=== PATIENT | female | born 1955 | race Caucasian/White ===

== ENCOUNTER 2016-10-16 05:07 | Inpatient (IN) ==
[2016-10-13 17:30] LABS: Basophils # (Auto) 0 K/mcL (0.0-0.3); Basophils % (Auto) 0.5 % (0.0-2.0); Eosinophils # (Auto) 0.3 K/mcL (0.0-0.7); Eosinophils % (Auto) 3.7 % (0.0-7.0); Granulocytes % (Auto) 58.8 % (38.0-78.0); Lymphocytes # (Auto) 2.7 K/mcL (1.5-4.8); Lymphocytes % (Auto) 31.6 % (15.5-49.0); Mean Cell Volume 91.2 fL (80.0-100.0); Mean Corpuscular HGB Conc 34.3 g/dL (31.0-36.0); Mean Corpuscular Hemoglobin 31.3 pg (26.0-34.0); Monocytes # (Auto) 0.5 K/mcL (0.1-0.9); Monocytes % (Auto) 5.4 % (1.0-12.0); Platelet Count 348 K/mcL (140-440); RBC 4.28 M/mcL (4.00-5.20); Red Cell Distribution Width 13.7 % (11.5-14.5)
[2016-10-13 17:42] LABS: Blood Urea Nitrogen 15 mg/dl (8-23)
[2016-10-14 15:57] LABS: Appearance,Urine HAZY; Bacteria,Urine 0 /hpf (0); Bilirubin,Urine NEG (NEG); Color,Urine AMBER; Glucose,Urine (UA) NEGATIVE (NEG); Leukocyte Esterase,Urine NEG /uL (NEG); Mucus,Urine FEW /hpf (0); Nitrate,Urine NEG (NEG); Protein,Urine 30 mg/dL (NEG); Specific Gravity,Urine 1.023 (1.000-1.035); Urine Blood NEG mg/dL (<0.03); Urine Hyaline Cast 11 /lpf (0-2); Urine RBC 1 /hpf (0-1); Urine Squamous Epithelial Cell 7 /hpf (0-4); Urine WBC 2 /hpf (0-4); Urobilinogen,Urine NEG (NEG)
[2016-10-16] MEDS ORDERED: ceFAZolin 1 GM VIAL IV SCH (06:00)
[2016-10-16 06:16] LABS: Appearance,Urine HAZY; Bacteria,Urine FEW /hpf (0); Bilirubin,Urine NEG (NEG); Color,Urine YELLOW; Glucose,Urine (UA) NEGATIVE (NEG); Leukocyte Esterase,Urine NEG /uL (NEG); Mucus,Urine MANY /hpf (0); Nitrate,Urine NEG (NEG); Protein,Urine 30 mg/dL (NEG); Specific Gravity,Urine 1.027 (1.000-1.035); Urine Blood NEG mg/dL (<0.03); Urine Hyaline Cast 4 /lpf (0-2); Urine RBC < 1 /hpf (0-1); Urine Squamous Epithelial Cell 4 /hpf (0-4); Urine Transitional Epi Cells < 1 /hpf (0-2); Urine WBC 2 /hpf (0-4); Urobilinogen,Urine NEG (NEG)
[2016-10-16] MEDS ORDERED: ONDANSETRON 4 MG/2 ML VIAL IV ONE (07:35)
[2016-10-16] MEDS ORDERED: TRANEXAMIC ACID 1,000 MG/10 ML VIAL IV ONE (07:35)
[2016-10-16] MEDS ORDERED: LIDOCAINE HCL/PF 100 MG/5 ML SYRINGE IV ONE (07:35)
[2016-10-16] MEDS ORDERED: PROPOFOL 200 MG/20 ML VIAL IV ONE (07:35)
[2016-10-16] MEDS ORDERED: DEXAMETHASONE 10 MG/ML VIAL IV ONE (07:35)
[2016-10-16] MEDS ORDERED: MIDAZOLAM 5 MG/5 ML VIAL IV ONE (07:35)
[2016-10-16] MEDS ORDERED: ROPIVACAINE HCL/PF 20 ML VIAL IJ ONE (07:35)
[2016-10-16] MEDS ORDERED: KETOROLAC 30 MG, ROPIVACAINE HCL/PF 49.5 ML, EPINEPHrine 0.5 MG, 0.9 % SODIUM CHLORIDE ... IJ ONE (08:00)
[2016-10-16] MEDS ORDERED: GENTAMICIN SULFATE 800 MG/20 ML VIAL IR ONE (08:02)
[2016-10-16] MEDS ORDERED: METHOCARBAMOL 1,000 MG/10 ML VIAL IV PRN (09:26)
[2016-10-16] MEDS ORDERED: HYDROmorphone 2 MG/ML SYRINGE IV PRN (09:26)
[2016-10-16] MEDS ORDERED: FLUMAZENIL 0.1 MG/ML ML IV PRN (09:26)
[2016-10-16] MEDS ORDERED: NALOXONE HCL 0.4 MG/ML VIAL IV PRN (09:26)
[2016-10-16] MEDS ORDERED: IPRATROPIUM/ALBUTEROL 3 ML AMPUL.NEB NEB PRN (09:26)
[2016-10-16] MEDS ORDERED: ONDANSETRON 4 MG/2 ML VIAL IV PRN ×2 (09:26→09:32)
[2016-10-16] MEDS ORDERED: diphenhydrAMINE 50 MG/ML VIAL IV PRN (09:26)
[2016-10-16] MEDS ORDERED: LACTATED RINGERS 250 ML IV PRN (09:26)
[2016-10-16] MEDS ORDERED: fentaNYL 100 MCG/2 ML VIAL IV PRN (09:26)
[2016-10-16] MEDS ORDERED: BENZOCAINE/MENTHOL 1 LOZENGE PO PRN ×2 (09:26→09:32)
[2016-10-16] MEDS ORDERED: LACTATED RINGERS 1,000 ML IV SCH (09:30)
[2016-10-16] MEDS ORDERED: BISACODYL 10 MG SUPP.RECT PR PRN (09:32)
[2016-10-16] MEDS ORDERED: MAGNESIUM HYDROXIDE 30 ML ORAL.SUSP PO PRN (09:32)
[2016-10-16] MEDS ORDERED: POLYETHYLENE GLYCOL 3350 17 GM PACKET PO PRN (09:32)
[2016-10-16] MEDS ORDERED: METHOCARBAMOL 750 MG TABLET PO PRN (09:32)
[2016-10-16] MEDS ORDERED: TRANEXAMIC ACID 1,000 MG/10 ML VIAL IV SCH (09:32)
[2016-10-16] MEDS ORDERED: FLEETS ADULT ENEMA PR PRN (09:32)
--- NOTE | 2016-10-16 09:49 | Brief Operative Note ---
Date of procedure: 10/16/16 Pre-op diagnosis: r knee primary arthritis Post-op diagnosis: same Procedure: r tkr (SNN BCS) Grafts/Implants: No Anesthesia: GETA Complications: none Surgeon: Hugo Rubio Explosive Ordnance Technician: Stefan Greenfield Estimated blood loss (cc): 250 Tourniquet Time (Minutes): 80 Specimens Removed/Pathology: none sent Condition: stable Disposition: PACU
[2016-10-16] MEDS: MEPERIDINE 25 MG/ML SYRINGE IV PRN ×2 (10:20→10:31)
--- NOTE | 2016-10-16 10:22 | XRay Report ---
CLINICAL INFORMATION: Total knee prostheses COMPARISON: None. FINDINGS: Total knee prostheses is anatomically aligned. No osseous abnormality. Periarticular gas and soft tissue swelling seen - as expected IMPRESSION: Negative Interpreted and Authenticated by: Kojo Kerr 10/16/16
[2016-10-16] MEDS: KETOROLAC 15 MG/ML VIAL IV SCH ×2 (12:27→17:38)
[2016-10-16] MEDS: HYDROcodone/APAP 10/325MG TABLET PO PRN ×3 (14:27→21:05)
[2016-10-16] MEDS: 0.9 % SODIUM CHLORIDE 10 ML SYRINGE IV SCH ×2 (14:27→21:06)
[2016-10-16] MEDS: GABAPENTIN 300 MG CAPSULE PO SCH ×2 (15:09→21:05)
[2016-10-16] MEDS: ceFAZolin 1 GM VIAL IV SCH ×2 (15:14→23:23)
[2016-10-16] MEDS: 0.9 % SODIUM CHLORIDE 1,000 ML IV SCH ×2 (16:36→21:06)
[2016-10-16] MEDS ORDERED: TEMAZEPAM 15 MG CAPSULE PO PRN (21:00)
[2016-10-16] MEDS: DOCUSATE SODIUM 100 MG CAPSULE PO SCH (21:05)
[2016-10-16] MEDS: SENNOSIDES 1 TABLET PO SCH (21:05)
[2016-10-16] MEDS: ATENOLOL 50 MG TABLET PO SCH (21:05)
[2016-10-16] MEDS: ENOXAPARIN 30 MG/0.3 ML SYRINGE SQ SCH (21:05)
[2016-10-17] MEDS: HYDROcodone/APAP 10/325MG TABLET PO PRN ×4 (00:30→12:37)
[2016-10-17] MEDS: KETOROLAC 15 MG/ML VIAL IV SCH ×5 (00:31→23:30)
[2016-10-17] MEDS: 0.9 % SODIUM CHLORIDE 1,000 ML IV SCH (05:25)
[2016-10-17] MEDS: 0.9 % SODIUM CHLORIDE 10 ML SYRINGE IV SCH ×3 (06:07→20:55)
--- NOTE | 2016-10-17 07:28 | Orthopedic Progress Note ---
Subjective Patient information: Note initiated : 10/17/16 at 7:26 am Service Date, if different from initiated Date: [] Patient: Summer Gaines 61 y/o F admitted on 10/16/16 for Right Total Knee Arthroplasty. Chief Complaint: [] Principal diagnosis: knee arthritis Interval history: POD 1 Objective Vital signs: Vital Signs Temp Pulse Resp BP BP BP Pulse Ox 10/17/16 06:49 97.7 F 65 12 102/67 95 10/17/16 06:39 97 10/17/16 04:00 97.8 F 68 14 91/57 97 10/17/16 00:00 96.8 F L 70 14 119/69 93 10/16/16 20:00 97.9 F 75 18 133/74 97 10/16/16 16:18 98.4 F 14 125/72 96 10/16/16 14:02 97 10/16/16 13:30 68 123/70 96 10/16/16 12:30 68 114/70 97 10/16/16 12:00 66 119/73 10/16/16 11:30 104 H 118/76 86 L 10/16/16 11:15 63 127/77 97 10/16/16 11:00 65 120/86 96 10/16/16 10:46 98.4 F 66 10 L 112/67 99 10/16/16 10:34 99.2 F H 65 13 105/69 100 10/16/16 10:21 67 22 140/80 99 10/16/16 10:06 70 22 147/81 100 10/16/16 10:01 70 22 111/83 100 10/16/16 09:56 70 15 126/57 95 10/16/16 09:51 98.1 F 73 13 133/45 100 Intake and Output 10/16/16 10/17/16 10/17/16 21:59 05:59 13:59 Intake Total 920 / 920 400 / 400 Output Total 225 / 225 1250 / 1250 Balance 695 / 695 -850 / -850 Intake: Oral 920 / 920 400 / 400 Output: Urine Catheter Amount 225 / 225 1250 / 1250 Other: Meal Dinner Percent of Meal Consumed 80 Weight 226 lb Intake & Output: Intake & Output 10/16/16 10/17/16 10/17/16 21:59 05:59 13:59 Intake Total 920 / 920 400 / 400 Output Total 225 / 225 1250 / 1250 Balance 695 / 695 -850 / -850 Weight 226 lb Intake: Oral 920 / 920 400 / 400 Output: Urine Catheter Amount 225 / 225 1250 / 1250 Other: Meal Dinner Percent of Meal Consumed 80 Dressing: Yes clean, Yes dry Weight bearing status: full Extremities exam IM: Yes neurovascular intact - Labs CBC & BMP: 10/17/16 05:33 10/16/16 05:11 Labs: Orthopedic Labs 10/13/16 15:26 PT 13.4 INR 1.0 10/17/16 10/17/16 10/13/16 06:50 05:33 15:26 Hgb Pending TNP 13.4 Hct Pending Not Reportable 39.0 Assessment and Plan (1) Knee joint replacement status continue Physical therapy, pain mgmt., Lovenox Status: Acute
[2016-10-17] MEDS: POTASSIUM CHLORIDE 20 MEQ TABLET PO SCH (08:05)
[2016-10-17] MEDS: GABAPENTIN 300 MG CAPSULE PO SCH ×3 (08:05→20:51)
[2016-10-17] MEDS: DOCUSATE SODIUM 100 MG CAPSULE PO SCH ×2 (08:05→20:51)
[2016-10-17] MEDS: ENOXAPARIN 30 MG/0.3 ML SYRINGE SQ SCH ×2 (08:05→20:51)
[2016-10-17] MEDS: LOSARTAN 50 MG TABLET PO SCH (08:06)
[2016-10-17] MEDS: ATENOLOL 50 MG TABLET PO SCH ×2 (08:06→20:52)
[2016-10-17] MEDS: HYDROCHLOROTHIAZIDE 25 MG TABLET PO SCH (08:06)
--- NOTE | 2016-10-17 12:03 | Operative Note ---
DATE OF OPERATION: 10/16/2016 PREOPERATIVE DIAGNOSIS: Primary osteoarthritis of the right knee. POSTOPERATIVE DIAGNOSES: Primary osteoarthritis of the right knee. OPERATION: Right total knee replacement. SURGEON: Hugo Rubio MD. CHILD WATCH ATTENDANT: Stefan Greenfield PA-C. ANESTHESIA: General. SUMMARY OF PROCEDURE: General anesthesia was attained. The tourniquet was put up. A midline incision was made from the quadriceps to the tibial tubercle. It was taken down to the quadriceps and medial retinacular layer. These were split longitudinally. The patellar tendon was mobilized laterally. The fat pad was debrided. The anterior half of the menisci were resected. The ACL was released. The knee was flexed. The intramedullary canal was opened using a drill and then a reamer on the femur. There was no flexion contracture. The distal cut was made. This was a 9.5 mm resection. The femur was sized and the rotation was adjusted to match the patient's. The knee was next flexed. The proximal tibial guide was placed into the intramedullary canal. The proximal cut was made. I then did a tension check using the tensioner, and there was excellent balance in flexion and extension and agreement of the flexion and extension gap based on the measurements. The anterior, posterior and bevel cuts were made in the femur. The box cut was made as well. The intramedullary canal of the tibia was prepared for placement of the implant by drilling and then broaching. The trial components were placed. The tibia was a #1. The best insert for stability and a full range of motion was with a 15 mm bicruciate substituting insert. The patella was everted. The patellar depth was measured to 24 by calibrated measurement, resected down to 14 mm. Patella was sized to a 29. The no-touch test showed a release was not needed. The joint surfaces were thoroughly irrigated. The components were cemented in. Excess cement was removed. The cement was set with the knee in full extension. The tourniquet was let down. All bleeding points were coagulated. The quadriceps and medial retinaculum were closed with #2 buried FiberWire and then a running locking 0 Maxon. The subcutaneous tissue was closed with 2-0 Vicryl. The skin was closed with wild. During this surgery the back of the knee had been infiltrated with 50 mL of multimodal ___ for postoperative analgesia. A sterile compressive dressing was applied. The patient awoke without difficulty. She was taken to the recovery room in stable condition. The sponge and needle count was correct. DOLORES:shar Job ID: [id number] Doc ID: [id number] Hugo Rubio MD
[2016-10-17] MEDS ORDERED: diphenhydrAMINE 25 MG CAPSULE PO PRN (12:56)
[2016-10-17] MEDS: SENNOSIDES 1 TABLET PO SCH (20:51)
[2016-10-17] MEDS: oxyCODONE/APAP 10/325MG TABLET PO PRN (20:54)
[2016-10-18] MEDS: oxyCODONE/APAP 10/325MG TABLET PO PRN ×3 (04:22→12:31)
[2016-10-18] MEDS: 0.9 % SODIUM CHLORIDE 10 ML SYRINGE IV SCH (04:23)
[2016-10-18] MEDS: KETOROLAC 15 MG/ML VIAL IV SCH (05:33)
--- NOTE | 2016-10-18 07:50 | Orthopedic Progress Note ---
Subjective Patient information: Note initiated : 10/18/16 at 7:49 am Service Date, if different from initiated Date: [] Patient: Summer Olvera a 61 y/o F admitted on 10/16/16 for Right Total Knee Arthroplasty. Chief Complaint: [] Principal diagnosis: knee arthritis Interval history: no complaints Objective Vital signs: Vital Signs Temp Pulse Resp BP BP Pulse Ox 10/18/16 07:10 98.6 F 16 123/70 97 10/18/16 03:31 98.1 F 58 L 18 108/65 94 10/17/16 23:33 97.8 F 61 14 116/72 95 10/17/16 19:56 98.0 F 60 14 101/56 95 10/17/16 16:00 97.7 F 16 106/69 92 10/17/16 12:00 97.6 F 20 117/61 98 Intake and Output 10/17/16 10/18/16 10/18/16 21:59 05:59 13:59 Intake Total 700 / 700 240 / 240 Output Total 525 / 525 1000 / 1000 Balance 175 / 175 -760 / -760 Intake: Oral 700 / 700 240 / 240 Output: Void Amount 525 / 525 1000 / 1000 Other: Weight 225 lb 5 oz Intake & Output: Intake & Output 10/17/16 10/18/16 10/18/16 21:59 05:59 13:59 Intake Total 700 / 700 240 / 240 Output Total 525 / 525 1000 / 1000 Balance 175 / 175 -760 / -760 Weight 225 lb 5 oz Intake: Oral 700 / 700 240 / 240 Output: Void Amount 525 / 525 1000 / 1000 Dressing: Yes clean, Yes dry, Yes intact Neurological exam IM: Yes oriented X3 - Labs CBC & BMP: 10/17/16 06:50 10/16/16 05:11 Labs: Orthopedic Labs 10/13/16 15:26 PT 13.4 INR 1.0 10/18/16 10/17/16 10/17/16 05:00 06:50 05:33 Hgb Pending 10.4 L TNP Hct Pending 30.8 L Not Reportable 10/13/16 15:26 Hgb 13.4 Hct 39.0 Assessment and Plan (1) Knee joint replacement status Status: Acute Comment: plan discharge
[2016-10-18] MEDS: HYDROCHLOROTHIAZIDE 25 MG TABLET PO SCH (08:28)
[2016-10-18] MEDS: POTASSIUM CHLORIDE 20 MEQ TABLET PO SCH (08:28)
[2016-10-18] MEDS: GABAPENTIN 300 MG CAPSULE PO SCH (08:28)
[2016-10-18] MEDS: DOCUSATE SODIUM 100 MG CAPSULE PO SCH (08:28)
[2016-10-18] MEDS: LOSARTAN 50 MG TABLET PO SCH (08:28)
[2016-10-18] MEDS: ENOXAPARIN 30 MG/0.3 ML SYRINGE SQ SCH (08:29)
[2016-10-18] MEDS: ATENOLOL 50 MG TABLET PO SCH (08:29)
== END 2016-10-18 13:40 | disposition home or self-care (01) | DRG 470 ==
LOC: MEDSUR 05:07
PROVIDERS: ADMIT Orthopaedic Surgery Foot and Ankle Surgery; ATTEND Orthopaedic Surgery Foot and Ankle Surgery

== ENCOUNTER 2017-02-05 07:53 | Inpatient (IN) ==
[2017-01-28 15:42] LABS: Appearance,Urine CLEAR; Bilirubin,Urine NEG (NEG); Color,Urine YELLOW; Glucose,Urine (UA) NEGATIVE (NEG); Leukocyte Esterase,Urine NEG /uL (NEG); Nitrate,Urine NEG (NEG); Protein,Urine NEG (NEG); Urine Blood NEG mg/dL (<0.03); Urobilinogen,Urine NEG (NEG)
[2017-01-28 16:18] LABS: Basophils # (Auto) 0 K/mcL (0.0-0.3); Basophils % (Auto) 0.5 % (0.0-2.0); Eosinophils # (Auto) 0.2 K/mcL (0.0-0.7); Eosinophils % (Auto) 2.2 % (0.0-7.0); Granulocytes % (Auto) 70.6 % (38.0-78.0); Lymphocytes # (Auto) 2.3 K/mcL (1.5-4.8); Lymphocytes % (Auto) 23.5 % (15.5-49.0); Mean Cell Volume 90.2 fL (80.0-100.0); Mean Corpuscular HGB Conc 33.1 g/dL (31.0-36.0); Mean Corpuscular Hemoglobin 29.9 pg (26.0-34.0); Monocytes # (Auto) 0.3 K/mcL (0.1-0.9); Monocytes % (Auto) 3.2 % (1.0-12.0); Platelet Count 380 K/mcL (140-440); RBC 4.24 M/mcL (4.00-5.20); Red Cell Distribution Width 15.3 % (11.5-14.5)
[2017-01-28 16:20] LABS: Blood Urea Nitrogen 18 mg/dl (8-23)
[~2017-02-05 07:53] MED LIST: ceFAZolin 1 GM VIAL IV SCH
[2017-02-05] MEDS ORDERED: KETOROLAC 30 MG, ROPIVACAINE HCL/PF 49.5 ML, EPINEPHrine 0.5 MG, 0.9 % SODIUM CHLORIDE ... IJ ONE (09:53)
[2017-02-05] MEDS ORDERED: PROPOFOL 200 MG/20 ML VIAL IV ONE (10:40)
[2017-02-05] MEDS ORDERED: LIDOCAINE HCL/PF 100 MG/5 ML SYRINGE IV ONE (10:40)
[2017-02-05] MEDS ORDERED: HYDROmorphone 2 MG/ML SYRINGE IV ONE (10:40)
[2017-02-05] MEDS ORDERED: ONDANSETRON 4 MG/2 ML VIAL IV ONE (10:40)
[2017-02-05] MEDS ORDERED: BUPIVACAINE PF 0.5% 30 ML VIAL IJ ONE (10:40)
[2017-02-05] MEDS ORDERED: DEXAMETHASONE 10 MG/ML VIAL IV ONE (10:40)
[2017-02-05] MEDS ORDERED: MIDAZOLAM 5 MG/5 ML VIAL IV ONE (10:40)
[2017-02-05] MEDS ORDERED: ACETAMINOPHEN 1,000 MG/100 ML BOTTLE IV ONE (11:08)
[2017-02-05] MEDS ORDERED: ATROPINE SULFATE 0.4 MG/ML VIAL IV PRN (11:08)
[2017-02-05] MEDS ORDERED: NALOXONE HCL 0.4 MG/ML VIAL IV PRN (11:08)
[2017-02-05] MEDS ORDERED: FLUMAZENIL 0.1 MG/ML ML IV PRN (11:08)
[2017-02-05] MEDS ORDERED: IPRATROPIUM/ALBUTEROL 3 ML AMPUL.NEB NEB PRN (11:08)
[2017-02-05] MEDS ORDERED: BENZOCAINE/MENTHOL 1 LOZENGE PO PRN (11:08)
[2017-02-05] MEDS ORDERED: ePHEDrine 50 MG/ML AMPUL IV PRN (11:08)
[2017-02-05] MEDS ORDERED: ONDANSETRON 4 MG/2 ML VIAL IV PRN (11:08)
[2017-02-05] MEDS ORDERED: PROMETHAZINE 25 MG/ML VIAL IV PRN (11:08)
[2017-02-05] MEDS ORDERED: fentaNYL 100 MCG/2 ML VIAL IV PRN (11:08)
[2017-02-05] MEDS ORDERED: METOPROLOL TARTRATE 5 MG/5 ML VIAL IV PRN (11:08)
[2017-02-05] MEDS ORDERED: diphenhydrAMINE 50 MG/ML VIAL IV PRN (11:08)
[2017-02-05] MEDS ORDERED: LACTATED RINGERS 1,000 ML IV SCH (11:15)
--- NOTE | 2017-02-05 11:42 | Brief Operative Note ---
Date of procedure: 02/05/17 Pre-op diagnosis: instability right knee replacement Post-op diagnosis: same Procedure: Polyethylene liner exchange right kmee Grafts/Implants: Yes (snn constrained liner) Anesthesia: GETA Complications: none Surgeon: Hugo Rubio Echocardiography Radiology Technologist: Stefan Greenfield Estimated blood loss (cc): 50 Tourniquet Time (Minutes): 45 Specimens Removed/Pathology: none sent Condition: stable Disposition: PACU
[2017-02-05] MEDS ORDERED: GENTAMICIN SULFATE 800 MG/20 ML VIAL IR ONE (11:57)
[2017-02-05] MEDS: MEPERIDINE 25 MG/ML SYRINGE IV PRN ×2 (12:06→12:09)
--- NOTE | 2017-02-05 13:32 | XRay Report ---
CLINICAL INFORMATION: Total knee prostheses COMPARISON: None. FINDINGS: Total knee prosthesis is anatomically aligned. No osseous abnormalities. Periarticular soft tissue swelling seen as expected IMPRESSION: Negative Interpreted and Authenticated by: Kojo Kerr 02/05/17
[2017-02-05] MEDS ORDERED: HYDROcodone/APAP 10/325MG TABLET PO PRN (14:00)
[2017-02-05] MEDS ORDERED: ATENOLOL 50 MG TABLET PO SCH (21:00)
[2017-02-06] MEDS ORDERED: POTASSIUM CHLORIDE 20 MEQ TABLET PO SCH (08:00)
[2017-02-06] MEDS ORDERED: HYDROCHLOROTHIAZIDE 25 MG TABLET PO SCH (09:00)
[2017-02-06] MEDS ORDERED: LOSARTAN 25 MG TABLET PO SCH (09:00)
--- NOTE | 2017-02-06 15:37 | Operative Note ---
DATE OF OPERATION: 02/05/2017 PREOPERATIVE DIAGNOSIS: Instability status post right total knee replacement. POSTOPERATIVE DIAGNOSIS: Instability status post right total knee replacement. OPERATION: Polyethylene liner exchange. SURGEON: Hugo Rubio M.D. OUTBOARD MOTOR MECHANIC: Stefan Greenfield PA-C. ANESTHESIA: General. SUMMARY OF PROCEDURE: General anesthesia was attained. The right leg was prepped and draped. There was flexion instability noted under anesthesia as well as hyperextension of the knee consistent with a loose knee. An incision was made from the quadriceps to the tibial tubercle incorporating the patient's previous incision. This was taken down sharply to the medial retinaculum and quadriceps area. A VMO split was used for the approach with care being taken not to split the quadriceps tendon. The medial retinaculum was split. The patient's previous polyethylene was 15 mm thick. This was removed. Trials were then done with the Bonilla [employer] Nephew constrained poly of 18 and 21 mm. We got much improved and excellent stability with a 21 mm trial and therefore inserted a 21 mm constrained poly. The cement mantles of the other three components of the knee replacement were confirmed to be intact with no evidence of loosening. The wound was copiously irrigated. The VMO split as well as the medial retinaculum were closed with buried simple sutures of #2 FiberWire and a running locking layer of 0 Maxon. The subcutaneous tissue was closed with buried 2-0 mo, and the skin was closed with wild. A sterile compressive dressing was applied. The sponge and needle count was correct. The patient tolerated the procedure well and was taken to the recovery room in stable condition. TJF:shar Job ID: [id number] Doc ID: [id number] Hugo Rubio MD
== END 2017-02-05 15:34 | disposition home or self-care (01) | DRG 489 ==
LOC: MEDSUR 07:53 → MERGE 10:30
PROVIDERS: ADMIT Orthopaedic Surgery Foot and Ankle Surgery; ATTEND Orthopaedic Surgery Foot and Ankle Surgery

== ENCOUNTER 2017-12-24 13:00 | Inpatient (IN) ==
[2017-12-24 14:42] LABS: Appearance,Urine CLEAR; Bilirubin,Urine NEG (NEG); Color,Urine YELLOW; Glucose,Urine (UA) NEGATIVE (NEG); Leukocyte Esterase,Urine NEG /uL (NEG); Protein,Urine NEG (NEG); Specific Gravity,Urine 1.011 (1.000-1.035); Urine Blood NEG mg/dL (<0.03); Urobilinogen,Urine NEG (NEG)
[2017-12-24 16:30] LABS: Basophils # (Auto) 0 K/mcL (0.0-0.3); Basophils % (Auto) 0.4 % (0.0-2.0); Eosinophils # (Auto) 0.3 K/mcL (0.0-0.7); Eosinophils % (Auto) 2.9 % (0.0-7.0); Granulocytes % (Auto) 64.6 % (38.0-78.0); Lymphocytes # (Auto) 2.9 K/mcL (1.5-4.8); Lymphocytes % (Auto) 27.9 % (15.5-49.0); Mean Cell Volume 92.5 fL (80.0-100.0); Mean Corpuscular HGB Conc 33.9 g/dL (31.0-36.0); Mean Corpuscular Hemoglobin 31.4 pg (26.0-34.0); Monocytes # (Auto) 0.4 K/mcL (0.1-0.9); Monocytes % (Auto) 4.2 % (1.0-12.0); Platelet Count 342 K/mcL (140-440); RBC 4.02 M/mcL (4.00-5.20); Red Cell Distribution Width 13.3 % (11.5-14.5)
[2017-12-24 16:38] LABS: Blood Urea Nitrogen 17 mg/dl (8-23)
[2017-12-31] MEDS ORDERED: ceFAZolin 1 GM VIAL IV SCH (06:00)
[2017-12-31] MEDS ORDERED: 0.9 % SODIUM CHLORIDE 9 ML, KETOROLAC 30 MG, ROPIVACAINE HCL/PF 49.5 ML, EPINEPHrine 0.... IJ SCH (06:00)
[2017-12-31] MEDS ORDERED: SCOPOLAMINE 1 PATCH PATCH TOPICAL ONE ×3 (07:34→10:00)
[2017-12-31] MEDS ORDERED: PROPOFOL 200 MG/20 ML VIAL IV ONE (11:00)
[2017-12-31] MEDS ORDERED: ONDANSETRON 4 MG/2 ML VIAL IV ONE (11:00)
[2017-12-31] MEDS ORDERED: DEXAMETHASONE 10 MG/ML VIAL IV ONE (11:00)
[2017-12-31] MEDS ORDERED: LIDOCAINE HCL/PF 100 MG/5 ML SYRINGE IV ONE (11:00)
[2017-12-31] MEDS ORDERED: MIDAZOLAM 5 MG/5 ML VIAL IV ONE (11:00)
[2017-12-31] MEDS ORDERED: fentaNYL 250 MCG/5 ML VIAL IV ONE (11:00)
[2017-12-31] MEDS ORDERED: GENTAMICIN SULFATE 800 MG/20 ML VIAL IR ONE (11:25)
[2017-12-31] MEDS ORDERED: PROMETHAZINE 25 MG/ML VIAL IV PRN (13:39)
[2017-12-31] MEDS ORDERED: IPRATROPIUM/ALBUTEROL 3 ML AMPUL.NEB NEB PRN (13:39)
[2017-12-31] MEDS ORDERED: ONDANSETRON 4 MG/2 ML VIAL IV PRN ×2 (13:39→13:48)
[2017-12-31] MEDS ORDERED: ACETAMINOPHEN 1,000 MG/100 ML BOTTLE IV ONE (13:39)
[2017-12-31] MEDS ORDERED: FLUMAZENIL 0.1 MG/ML ML IV PRN (13:39)
[2017-12-31] MEDS ORDERED: LACTATED RINGERS 250 ML IV PRN (13:39)
[2017-12-31] MEDS ORDERED: diphenhydrAMINE 50 MG/ML VIAL IV PRN (13:39)
[2017-12-31] MEDS ORDERED: NALOXONE HCL 0.4 MG/ML VIAL IV PRN (13:39)
[2017-12-31] MEDS ORDERED: fentaNYL 100 MCG/2 ML VIAL IV PRN (13:39)
[2017-12-31] MEDS ORDERED: BENZOCAINE/MENTHOL 1 LOZENGE PO PRN ×2 (13:39→13:48)
[2017-12-31] MEDS ORDERED: LACTATED RINGERS 1,000 ML IV SCH (13:45)
[2017-12-31] MEDS ORDERED: FLEETS ADULT ENEMA PR PRN (13:48)
[2017-12-31] MEDS ORDERED: BISACODYL 10 MG SUPP.RECT PR PRN (13:48)
[2017-12-31] MEDS ORDERED: POLYETHYLENE GLYCOL 3350 17 GM PACKET PO PRN (13:48)
[2017-12-31] MEDS ORDERED: TRANEXAMIC ACID 1,000 MG/10 ML VIAL IV SCH (13:48)
[2017-12-31] MEDS ORDERED: MAGNESIUM HYDROXIDE 30 ML ORAL.SUSP PO PRN (13:48)
--- NOTE | 2017-12-31 13:55 | Brief Operative Note ---
Date of procedure: 12/31/17 Pre-op diagnosis: unstable right knee replacement Post-op diagnosis: same Procedure: Revision knee replacement Grafts/Implants: Yes (attune revision ) Anesthesia: JOSE Surgeon: Hugo Rubio Executive Director: Stefan Greenfield Estimated blood loss (cc): 250 Tourniquet Time (Minutes): 135 Specimens Removed/Pathology: other (bone biopsy) Condition: stable Disposition: PACU
[2017-12-31] MEDS ORDERED: 0.9 % SODIUM CHLORIDE 1,000 ML IV SCH (14:00)
[2017-12-31] MEDS ORDERED: HYDROmorphone 2 MG/ML VIAL IV PRN ×2 (14:21→14:24)
[2017-12-31] MEDS ORDERED: ACETAMINOPHEN 1,000 MG/100 ML BOTTLE IV PRN (14:24)
[2017-12-31] MEDS: MEPERIDINE 25 MG/ML SYRINGE IV PRN ×2 (14:41→14:47)
--- NOTE | 2017-12-31 14:52 | Operative Note ---
DATE OF OPERATION: 12/31/2017 PREOPERATIVE DIAGNOSIS: Unstable right total knee prosthesis. POSTOPERATIVE DIAGNOSIS: Unstable right total knee prosthesis. OPERATION: Revision right total knee replacement. SURGEON: Hugo Rubio MD HOT WALKER: Stefan Greenfield PA-C ANESTHESIA: General. TOURNIQUET TIME: 1 hour 35 minutes. ESTIMATED BLOOD LOSS: 250 mL SUMMARY OF PROCEDURE: General anesthesia was attained. The right knee was examined under anesthesia and this confirmed recurvatum instability as well as lateral instability. The leg was prepped and draped. A midline incision was made from the quadriceps to the tibial tubercle. It was taken down sharply to the medial retinaculum and quadriceps. These were split longitudinally. The knee was flexed. The patient's polyethylene insert was removed. There was no evidence of loosening of any components. The patella was everted after a lateral release was performed. The patient had a patella baja prior to any of her surgeries. The patella was examined and there was no instability, nor wear on the patella. The femur was next removed. This was started by freeing up the femur using osteotomes and breaking up the cement all the way around the femur. The femur was then removed with minimal bone loss. The patella was next removed. An osteotome was used to break up the ramos between the cement and the femur. There was no evidence of loosening. There was no evidence of infection. A sample of femoral bone was sent for biopsy. After freeing up the cement mantle, the tibia was removed as well using a punch. Attention was then turned to the tibia. This was reamed up to 11 mm for a 10 mm stem. We then broached to a 29 mm broach and cut at the level of the broach. The tibia sized to a 3. The rotation was adjusted to get maximum coverage of the tibial surface. Attention was then turned to the femur. All the bone that could be removed was removed. The femur was then reamed for the stem and then broached for the sleeve. We then did multiple trials to restore the stability to the knee. The best result was with some mild external rotation of the femoral component and buildups of the distal femur and proximal tibia. The distal femur was built up by 4 mm and the proximal tibia was built up by 5 mm. We also used a 4 mm insert on the posterolateral femur. The femur was next recut. This was done using a size 5 guide to increase the flexion stability of the knee. Trials were then done and there was no longer any instability laterally, nor in flexion. The wounds were copiously irrigated. The components were cemented in. Excess cement was removed. The tourniquet was let down. All bleeding points were coagulated. The quadriceps and medial retinaculum were closed with [id number] sutures of #2 FiberWire, then a locking running 0 Maxon. The subcutaneous tissue was closed with buried 2-0 Monocryl and the skin was closed with wild. Throughout the procedure, we injected the knee with a multimodal solution prepared by the pharmacy for analgesia. The sponge and needle count was correct. The patient tolerated the procedure well and was taken to the recovery room in stable condition. TJF:kh Job ID: [id number] Doc ID: [id number] Hugo Rubio MD
[2017-12-31] MEDS: 0.9 % SODIUM CHLORIDE 10 ML SYRINGE IV SCH ×2 (15:29→20:39)
--- NOTE | 2017-12-31 15:29 | XRay Report ---
CLINICAL INFORMATION: Revision of right total knee arthroplasty TECHNIQUE: AP, crosstable lateral, patellar views COMPARISON: Previous postoperative right knee dated 02/05/2017 FINDINGS: Status post right total knee arthroplasty. The femoral and tibial complements and then replaced with a longer stems. Alignment is anatomic. There is postsurgical soft tissue and intra-articular gas. There are skin wild anteriorly. IMPRESSION: Status post revision of right total knee arthroplasty Interpreted and Authenticated by: Kojo Dean 12/31/17
[2017-12-31] MEDS: HYDROcodone/APAP 10/325MG TABLET PO PRN ×2 (16:12→21:50)
[2017-12-31] MEDS: NACL 0.9% W/KCL 20MEQ 1,000 ML IV SCH (18:14)
[2017-12-31] MEDS: ceFAZolin 1 GM VIAL IV SCH (18:15)
[2017-12-31] MEDS: SENNOSIDES 1 TABLET PO SCH (20:38)
[2017-12-31] MEDS: POTASSIUM CHLORIDE 20 MEQ TABLET PO SCH (20:38)
[2017-12-31] MEDS: DOCUSATE SODIUM 100 MG CAPSULE PO SCH (20:38)
[2017-12-31] MEDS: ATENOLOL 50 MG TABLET PO SCH (20:39)
[2017-12-31] MEDS: ASPIRIN 325 MG ENTERIC COATED TABLET PO SCH (20:39)
[2018-01-01] MEDS: ceFAZolin 1 GM VIAL IV SCH (02:11)
[2018-01-01] MEDS: HYDROcodone/APAP 10/325MG TABLET PO PRN ×5 (02:12→20:25)
[2018-01-01] MEDS: NACL 0.9% W/KCL 20MEQ 1,000 ML IV SCH ×3 (03:57→20:26)
[2018-01-01] MEDS: 0.9 % SODIUM CHLORIDE 10 ML SYRINGE IV SCH ×3 (05:10→20:26)
--- NOTE | 2018-01-01 07:31 | Orthopedic Progress Note ---
Subjective Patient information: Note initiated : 01/01/18 at 7:29 am Service Date, if different from initiated Date: [] Patient: Summer Olvera 62 y/o F admitted on 12/31/17 for Right Total Knee Arthroplasty Revision. Chief Complaint: [] Principal diagnosis: revision right knee replacement Interval history: preop lateral laxity Objective Vital signs: Vital Signs Temp Pulse Pulse Resp BP BP Pulse Ox 01/01/18 04:03 98.1 F 61 17 116/76 97 01/01/18 00:00 98 F 68 16 110/56 95 12/31/17 20:00 98.3 F 72 16 113/60 94 12/31/17 17:50 74 12/31/17 17:17 72 107/57 96 12/31/17 16:46 75 111/65 95 12/31/17 16:16 78 102/63 97 12/31/17 16:01 72 95/58 93 12/31/17 15:46 76 92/54 92 12/31/17 15:32 77 93/57 95 12/31/17 15:17 78 97/46 90 12/31/17 15:15 78 16 92 12/31/17 15:03 98.8 F 80 18 104/56 93 12/31/17 14:48 99.0 F 81 21 139/99 94 12/31/17 14:33 99.0 F 86 20 149/55 93 12/31/17 14:28 89 20 128/62 93 12/31/17 14:23 98.2 F 89 17 107/71 96 12/31/17 14:18 97.6 F 83 83 17 110/57 97 12/31/17 08:00 97.3 F 68 16 120/70 95 Intake and Output 12/31/17 01/01/18 01/01/18 21:59 05:59 13:59 Intake Total 3100 / 3100 2162 / 2162 Output Total 300 / 300 850 / 850 Balance 2800 / 2800 1312 / 1312 Intake: IV 3100 / 3100 972 / 972 Lactated Ringers 1,000 ml @ 20 3000 / 3000 mls/hr IV .Q24H MATTHIAS Rx#: [id number] NaCl 0.9% W/KCl 20Meq 1000ML 1, 972 / 972 000 ml @ 100 mls/hr IV .Q10H MATTHIAS Rx#:[id number] Oral 1190 / 1190 Output: Urine Catheter Amount 50 / 50 Straight 50 / 50 Void Amount 150 / 150 850 / 850 Estimated Blood Loss 100 / 100 Other: Meal Dinner Percent of Meal Consumed 100% Feeding Ability Independent Urine Appearance Clear Straight Clear Urine Color Bright Yellow Bright Yellow Straight Dark Yellow Urine Odor Normal Normal # Voids 1 Weight 228 lb Intake & Output: Intake & Output 12/31/17 01/01/18 01/01/18 21:59 05:59 13:59 Intake Total 3100 / 3100 2162 / 2162 Output Total 300 / 300 850 / 850 Balance 2800 / 2800 1312 / 1312 Weight 228 lb Intake: IV 3100 / 3100 972 / 972 Lactated Ringers 1,000 ml @ 20 3000 / 3000 mls/hr IV .Q24H MATTHIAS Rx#: [id number] NaCl 0.9% W/KCl 20Meq 1000ML 1, 972 / 972 000 ml @ 100 mls/hr IV .Q10H MATTHIAS Rx#:[id number] Oral 1190 / 1190 Output: Urine Catheter Amount 50 / 50 Straight 50 / 50 Void Amount 150 / 150 850 / 850 Estimated Blood Loss 100 / 100 Other: Meal Dinner Percent of Meal Consumed 100% Feeding Ability Independent Urine Appearance Clear Straight Clear Urine Color Bright Yellow Bright Yellow Straight Dark Yellow Urine Odor Normal Normal # Voids 1 Incision clean and dry: Yes Dressing: Yes clean Weight bearing status: full Range of motion: 0-90 Neurological exam IM: Yes normal gait Extremities exam IM: Yes Foot pink and warm Additional Comments: decreased sensation, but can dorsiflex ankle - Labs CBC & BMP: 12/24/17 13:24 12/24/17 13:24 Labs: 12/24/17 13:24 Hgb 12.6 Hct 37.2 Assessment and Plan (1) Knee joint replacement status Status: Acute Comment: plan discharge - Narrative A/P Narrative: continue physical therapy; observe for resolution of numbness
[2018-01-01] MEDS: DOCUSATE SODIUM 100 MG CAPSULE PO SCH ×2 (08:06→20:26)
[2018-01-01] MEDS: HYDROCHLOROTHIAZIDE 25 MG TABLET PO SCH (08:11)
[2018-01-01] MEDS: FLUoxetine HCL 10 MG CAPSULE PO SCH (08:11)
[2018-01-01] MEDS: LOSARTAN 25 MG TABLET PO SCH (08:11)
[2018-01-01] MEDS: ASPIRIN 325 MG ENTERIC COATED TABLET PO SCH ×2 (08:11→20:25)
[2018-01-01] MEDS: ATENOLOL 50 MG TABLET PO SCH ×2 (08:12→20:25)
[2018-01-01] MEDS ORDERED: ZOLPIDEM 5 MG TABLET PO PRN (18:02)
[2018-01-01] MEDS: POTASSIUM CHLORIDE 20 MEQ TABLET PO SCH (20:25)
[2018-01-01] MEDS: SENNOSIDES 1 TABLET PO SCH (20:26)
[2018-01-02] MEDS: HYDROcodone/APAP 10/325MG TABLET PO PRN ×2 (03:05→07:02)
[2018-01-02] MEDS: 0.9 % SODIUM CHLORIDE 10 ML SYRINGE IV SCH ×2 (03:06→05:20)
[2018-01-02] MEDS: NACL 0.9% W/KCL 20MEQ 1,000 ML IV SCH (06:56)
[2018-01-02] MEDS: FLUoxetine HCL 10 MG CAPSULE PO SCH (07:02)
[2018-01-02] MEDS: ASPIRIN 325 MG ENTERIC COATED TABLET PO SCH (07:02)
--- NOTE | 2018-01-02 07:41 | Orthopedic Progress Note ---
Subjective Patient information: Note initiated : 01/02/18 at 7:35 am Service Date, if different from initiated Date: [] Patient: Summer Olvera 62 y/o F admitted on 12/31/17 for Right Total Knee Arthroplasty Revision. Chief Complaint: [] Principal diagnosis: revision right knee replacement Objective Vital signs: Vital Signs Temp Pulse Resp BP Pulse Ox 01/02/18 06:56 99.3 F H 74 16 101/57 92 01/02/18 02:57 98.1 F 73 19 104/67 91 01/01/18 23:59 98.1 F 68 16 97/55 93 01/01/18 20:00 98.3 F 66 16 121/59 95 01/01/18 16:00 97.4 F 20 136/67 96 01/01/18 12:00 98.1 F 20 116/67 97 01/01/18 08:15 97.9 F 67 18 94/56 95 01/01/18 07:56 65 18 96 Intake and Output 01/01/18 01/02/18 01/02/18 21:59 05:59 13:59 Intake Total 960 / 960 50 / 50 Output Total 350 / 350 500 / 500 Balance 610 / 610 -450 / -450 Intake: Oral 960 / 960 50 / 50 Output: Void Amount 350 / 350 500 / 500 Other: Urine Color Bright Yellow Dark Yellow Urine Odor Normal # Voids 1 Weight 226 lb 1.6 oz Intake & Output: Intake & Output 01/01/18 01/02/18 01/02/18 21:59 05:59 13:59 Intake Total 960 / 960 50 / 50 Output Total 350 / 350 500 / 500 Balance 610 / 610 -450 / -450 Weight 226 lb 1.6 oz Intake: Oral 960 / 960 50 / 50 Output: Void Amount 350 / 350 500 / 500 Other: Urine Color Bright Yellow Dark Yellow Urine Odor Normal # Voids 1 Incision: Yes healing, Yes clean and dry Incision clean and dry: Yes Dressing: Yes clean, Yes dry, Yes intact Weight bearing status: as tolerated Neurological exam IM: Yes oriented X3, Yes motor sensory intact, Yes neurovascular intact Extremities exam IM: Yes calf tenderness (NONE), Yes Tierra's sign (NEGATIVE BILATERALLY) - Labs CBC & BMP: 12/24/17 13:24 12/24/17 13:24 Labs: 12/24/17 13:24 Hgb 12.6 Hct 37.2 Assessment and Plan (1) Knee joint replacement status DISCHARGE TO HOME TODAY. FOLLOW-UP WITH DR. MARCELINO IN 2 WEEKS. DISCHARGE INSTRUCTIONS PROVIDED. Status: Acute Comment: plan discharge
--- NOTE | 2018-01-02 07:46 | Discharge Summary ---
Ortho Discharge - TKA - Patient Instructions Diet: Regular Diet Activity: activity as tolerated, ambulate with assistive device, weight bearing as tolerated Total Knee Protocol: For Total Knee: Start ROM OREN with stationary bike or rocking chair. Work on gaining full extension of knee. Posterior dislocation precautions provided. Hip abductor strengthening and gait training instructions provided. Apply Cryocuff as instructed. Patient Education: Total Knee Replacement (DC) Additional Instructions: Discharge Instructions: Do the exercises at home that physical therapy gave you throughout the day. Weight bearing as tolerated. Wear comfortable clothing for physical therapy. You are scheduled to start physical therapy at [facility] ([phone]) on at 10:15 am, please arrive 15 minutes early for paperwork. Take your prescription, photo ID, insurance cards, and current medication list with you to your first physical therapy appointment. Take your prescription to [facility] picker any medication. You have the Aquacel Ag dressing, leave in place for 7 days then remove. If dressing becomes soiled (turns black), remove and use gauze 4x4 dressing and silvasorb ointment and change daily. Keep incision clean and dry. dressing (above). May start showering on post op day #2. To avoid constipation while taking any narcotic pain medication, take an over the counter stool softener/laxative. Use your Cryocuff or ice packs as directed, on for 20 minutes at a time throughout the day. This and elevation will help with pain and swelling. Call your physician for fevers above 100.5 or pain not controlled by medication. Your prescriptions are with your discharge information. Some medications were electronically transmitted to your pharmacy of choice. Take Aspirin twice daily, for 30 days, as prescribed to prevent blood clots ( see medication list). - Problem Maintenance (1) Knee joint replacement status Status: Acute Comment: plan discharge - Follow Up Plan Follow Up Appointments: Hugo Rubio MD [Physician] - 01/13/18 1:10 pm Disposition: Home, Self-Care Prognosis: Good Rehab Potential: Good I certify that the patient requires SNF services: No Overall status at discharge: patient is progressing back to baseline - Orders For Discharge Prescriptions: Aspirin [Ecotrin] 325 mg PO BID 30 Days #60 tab.ec HYDROcodone/APAP 10/325MG [[place] 10-325Mg] 1 - 2 tab PO Q4HP PRN #60 tab PRN Reason: Pain
[2018-01-02] MEDS: LOSARTAN 25 MG TABLET PO SCH (08:07)
[2018-01-02] MEDS: HYDROCHLOROTHIAZIDE 25 MG TABLET PO SCH (08:07)
[2018-01-02] MEDS: DOCUSATE SODIUM 100 MG CAPSULE PO SCH (08:07)
[2018-01-02] MEDS: ATENOLOL 50 MG TABLET PO SCH (08:08)
== END 2018-01-02 11:22 | disposition home or self-care (01) | DRG 467 ==
LOC: MEDSUR 12-31 06:40
PROVIDERS: ADMIT Orthopaedic Surgery Foot and Ankle Surgery; ATTEND Orthopaedic Surgery Foot and Ankle Surgery
CPT/HCPCS: 62322; 97161; C1776; J0131; J0171; J0690; J1100; J1170; J1580; J1885; J2001; J2175; J2250; J2405; J2795; J3010; J3480; J7050; J7120